=== PATIENT | female | born 1955 | race Caucasian/White ===

== ENCOUNTER → 2016-09-25 | Outpatient (CLI) | payer MEDICARE ==
[2015-01-15 09:14] VITALS: BP 138/68
[~2016-09-25] MED LIST: ATOR20TA58 PO; BUPR1TAB17 SL; CYCL10TA2 PO; ESTR1TAB15 PO; HYDR8TAB29 PO; LEVO112T4 PO; METH750T2 PO; MULT-650 PO; OXYB10TA PO; OXYM15TA PO; PROP60CA8 PO; TRIA1CAP3 PO; [UNRECOGNIZED DRUG - CODE] PO
--- NOTE | 2016-09-25 11:31 | CARD ---
APPROVED REPORT EXAM: Two-dimensional and M-mode echocardiogram with Doppler and color Doppler. Other Information Quality : Good INDICATION Left Ventricular Hypertrophy 2D DIMENSIONS RVDd2.9 (2.9-3.5cm)Left Atrium(2D)3.6 (1.6-4.0cm) IVSd0.9 (0.7-1.1cm)Aortic Root(2D)2.2 (2.0-3.7cm) LVDd4.9 (3.9-5.9cm)LVOT Diameter2.0 (1.8-2.4cm) PWd0.9 (0.7-1.1cm)LVDs3.8 (2.5-4.0cm) FS (%) 25.0 %SV49.5 ml LVEF(%)50.0 (>50%) Aortic Valve AoV Peak Vladimir.138.4cm/sAoV VTI28.8cm AO Peak GR.7.7mmHgLVOT Peak Vladimir.86.0cm/s AO Mean GR.4mmHgAVA (VMAX)1.91cm2 TEJINDER (VTI)2.20cm2 Mitral Valve MV E Ngxbiigj164.5cm/sMV DECEL COCC095nq MV A Zrxgnejc819.7cm/sE/A Ratio0.9 Pulmonary Vein S1 Xvqzvvey85.0cm/sD2 Unkjbtjv53.6cm/s PVa [id number] LEFT VENTRICLE The left ventricle is normal size. There is normal left ventricular wall thickness. Left ventricle sy stolic function is low normal. The Ejection Fraction is 50-55%. There is normal LV segmental wall mot ion. Transmitral Doppler flow pattern is Grade I-abnormal relaxation pattern. RIGHT VENTRICLE The right ventricle is normal size. The right ventricular systolic function is normal. ATRIA The left atrium size is normal. The right atrium size is normal. The interatrial septum is intact wit h no evidence for an atrial septal defect or patent foramen ovale as noted on 2-D or Doppler imaging. AORTIC VALVE The aortic valve is normal in structure and function. Doppler and Color Flow revealed no significant aortic regurgitation. There is no significant aortic valvular stenosis. MITRAL VALVE The mitral valve is normal in structure and function. There is no evidence of mitral valve prolapse. There is no mitral valve stenosis. Doppler and Color-flow revealed mild mitral regurgitation. TRICUSPID VALVE The tricuspid valve is normal in structure and function. Doppler and Color Flow revealed no tricuspid valve regurgitation noted. There is no tricuspid valve stenosis. PULMONIC VALVE Doppler and Color Flow revealed no pulmonic valvular regurgitation. There is no pulmonic valvular willa nosis. GREAT VESSELS The aortic root is normal in size. The ascending aorta is normal in size. The IVC is normal in size a nd collapses >50% with inspiration. PERICARDIAL EFFUSION There is no evidence of significant pericardial effusion. Critical Notification Critical Value: No <Conclusion> Left ventricle systolic function is low normal. The Ejection Fraction is 50-55%. There is normal LV segmental wall motion. No significant valvular disease.
== END | disposition home or self-care (01) ==
LOC: ECHO 10:06
PROVIDERS: ATTEND Internal Medicine Cardiovascular Disease
DX: I51.7 Cardiomegaly (principal)
CPT/HCPCS: 93306

== ENCOUNTER 2016-10-03 06:16 | Inpatient (IN) | payer MEDICARE ==
--- NOTE | 2016-10-02 12:26 | PDOC1 ---
History and Physical Date of Admission Date of Admission DATE: 10/03/16 Identification/Chief Complaint Chief Complaint right knee osteoarthritis pain Source Source: Chart review History of Present Illness History of Present Illness Patient is a 61 year old disabled woman who is here for pain in both knees. The pain is rated at a sharp 7-9 out of 10 and has been there for 10-15 years. The pain is located Anteriorly and medially, with numbness and tingling in both legs that starts in her thighs and goes all the way down. She has been taking cyclobenzaprine and Suboxone for pain and had a cortisone injection 3 or [address] Volodymyr Higuera[address] Xrays were taking at [facility] of 01/12/16, as well as an older MRI on 11/01/12. She cannot take NSAIDs due to swelling and breathing issues. She has been attending the pain clinic for lumbar epidural steroids. She played some sports remotely. 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 She did physical therapy as we instructed, and had cortisone injections but only got minimal relief. She is using a brace on the right knee. She has a [employer] brace. The right knee is the worst of the two. Past Medical History Cardiovascular: HTN, Hyperlipidemia GI: GERD Musculoskeletal: Osteoarthritis, Other (bilateral ankle fractures) Endocrine: Hypothyroidism Past Surgical History Past Surgical History left ankle fusion Past Surgical History: Hysterectomy Family History Family History: Heart Disease Social History Smoke: Quit ALCOHOL: rare Drugs: None Current Medications Current Medications Current Medications Morphine Sulfate/ Ropivacaine/ Epinephrine HCl/ Sodium Chloride (Morphine 5mg Syringe/Naropin 0.5%/Adrenalin/Iv Sodium Chloride 0.9% 100ml) 99.5 ml @ 99.5 mls/hr 1X PERIOP ONCE INT ART ; Start 10/03/16 at 08:00; Stop 10/03/16 at 08:59 Active Scripts Active Reported Pain & Fever (Acetaminophen) 500 Mg Tablet 2 Tab PO DAILY Centrum Silver Women Tablet (Multivits-Min/Iron/FA/Lutein) 1 Each Tablet 1 Each PO DAILY Oxybutynin Chloride Er (Oxybutynin Chloride) 10 Mg Tab.er.24 10 Mg PO BID Cyclobenzaprine Hcl 10 Mg Tablet 10 Mg PO TID Zubsolv 1.4-0.36 Mg Tablet Sl (Buprenorphine Hcl/Naloxone Hcl) 1 Each Tab.subl 1 Each SL TID Inderal La (Propranolol Hcl) 60 Mg Cap.sa.24h 2 Cap PO DAILY Atorvastatin Calcium 20 Mg Tablet 1 Tab PO DAILY Estradiol 1 Mg Tablet 1 Tab PO DAILY Levothyroxine Sodium 112 Mcg Tablet 1 Tab PO DAILY Triamterene-Hctz 37.5-25 Mg Cp (Triamterene/Hydrochlorothiazid) 1 Each Capsule 1 Cap PO DAILY Allergies Allergies: Coded Allergies: baclofen (Verified Allergy, Intermediate, Anaphylaxis, 09/11/16) gabapentin (Verified Allergy, Intermediate, Anaphylaxis, 09/11/16) tizanidine (Verified Allergy, Intermediate, Anaphylaxis, 09/11/16) ibuprofen (Verified Adverse Reaction, Intermediate, Swelling, 09/11/16) ketorolac (Verified Adverse Reaction, Intermediate, Swelling, 09/11/16) Physical Exam General: Alert, Oriented X3, Cooperative, No acute distress HEENT: Atraumatic, EOMI Lungs: Normal air movement Heart: RRR Abdomen: Soft Extremities: No clubbing, No cyanosis, No edema, Normal pulses Skin: No rashes, No breakdown, No significant lesion Neuro: Normal speech, Sensation intact Psych/Mental Status: Mental status NL, Mood NL Images Images IMAGING REPORT Joint survey, hips, knees, and ankles Clinical information: Preoperative for total knee arthroplasty Comparison: None. Findings Bones: The mechanical axis of the femur is 5 bilaterally. Screws are present at the left ankle joint. There are minimal degenerative changes of the hips and ankles. There is narrowing of the knees and varus alignment bilaterally. The right hip to ankle distance is 885 mm. The left hip to ankle distances is 882 mm. Joints: As above Soft tissue: Normal. Impression: Bilateral knee osteoarthritis with varus alignment. Dictated and Signed Using Voice Recognition Software Vamshi Bell MD VTE Prophylaxis Ordered VTE Prophylaxis Devices: Yes VTE Pharmacological Prophylaxi: Yes Assessment/Plan Assessment/Plan Right knee osteoarthritis. Dr. Bell discussed total knee arthroplasty and the risks and benefits. She has continued pain despite bracing, cortisone injection, and physical therapy. X- rays show [id number] arthritis. The right knee is more symptomatic. We discussed right total knee arthroplasty, and the expected hospitalization. We discussed the potential risks of infection, neurovascular injury, bleeding, blood clots, need for revision surgery, or other potential surgical or anesthetic complications. Her son was here today and we discussed the rehabilitation class, medical clearance and other perioperative concerns. She normally cannot take NSAIDs but does feel like she could take an aspirin twice a day for DVT prophylaxis. We will plan a right total knee arthroplasty mutually convenient date. Due to her young age we will consider an Oxinium component. TEODORO WILKERSON Oct 02, 2016 12:26
[~2016-10-03] VITALS: Ht 163.8 cm; Wt 94.8 kg
[2016-10-03] VITALS (8 sets, daily range): BP systolic 110–157; BP diastolic 61–82
[~2016-10-03 06:16] MED LIST changes: +CEFAZOLIN 2GM PREMIX 50 ML IV PRN; +HYDROCODONE/APAP 7.5/325MG TABLET. PO PRN; +TRANEXAMIC ACID 1,000 MG in IV NS 50ML -- 1ST BAG INJ ONE
[2016-10-03] MEDS ORDERED: MIDAZOLAM HCL 2 MG/2 ML VIAL. ONE (06:48)
[2016-10-03] MEDS ORDERED: ONDANSETRON PF 4 MG/2 ML VIAL. ONE ×2 (06:49→07:42)
[2016-10-03] MEDS ORDERED: SEVOFLURANE 61 TO 120 MINUTES. IH ONE (06:49)
[2016-10-03] MEDS ORDERED: LIDOCAINE 2% 100 MG/5 ML DISP.SYRIN. ONE (06:49)
[2016-10-03] MEDS ORDERED: FENTANYL PF 250 MCG/5 ML VIAL. ONE (06:49)
[2016-10-03] MEDS ORDERED: PROPOFOL 20 ML IV ONE (06:49)
[2016-10-03] MEDS ORDERED: FAMOTIDINE 20 MG/2 ML VIAL ONE (06:49)
[2016-10-03] MEDS ORDERED: TOBRAMYCIN POWDER 1.2 GM VIAL. ONE (06:52)
[2016-10-03] MEDS ORDERED: VANCOMYCIN 1 GM VIAL. ONE (06:52)
[2016-10-03] MEDS ORDERED: HYDROMORPHONE 2 MG/ML VIAL. IV PRN (07:00)
[2016-10-03] MEDS ORDERED: FENTANYL PF 100 MCG/2 ML VIAL. IV PRN ×2 (07:00→09:30)
[2016-10-03] MEDS ORDERED: PROCHLORPERAZINE 10 MG/2 ML VIAL. IV PRN ×2 (07:00→09:30)
[2016-10-03] MEDS ORDERED: IV RINGERS,LACTATED 1000ML 1,000 ML IV SCH (07:00)
[2016-10-03] MEDS ORDERED: MORPHINE SULFATE 2 MG/ML DISP.SYRIN. IV PRN ×2 (07:00→09:30)
[2016-10-03] MEDS ORDERED: ONDANSETRON PF 4 MG/2 ML VIAL. IV PRN (07:00)
[2016-10-03] MEDS ORDERED: LIDOCAINE 1% 1 ML SYRINGE. ID PRN (07:00)
[2016-10-03] MEDS ORDERED: TRANEXAMIC ACID 1,000 MG in IV NS 50ML -- 2ND BAG INJ ONE (08:00)
[2016-10-03] MEDS ORDERED: MORPHINE SULFATE 5 MG, ROPIVacaine 0.5% PF 60 ML, EPINEPHRINE 0.5 MG in IV NORMAL SALIN... INT ART ONE (08:00)
[2016-10-03] MEDS ORDERED: MORPHINE SULFATE 10 MG/ML VIAL. ONE (08:49)
--- NOTE | 2016-10-03 09:17 | PDOC4 ---
Operative Note Operative Note Date of Procedure: October 03, 2016 Pre-Op Diagnosis: Osteoarthritis right knee Post-Op Diagnosis: Osteoarthritis right knee Procedure: right total knee arthroplasty Surgeon: Cyndie Bell MD Acupressurist: Estefany Elder PA-C Anesthesia: General EBL: 200 mL Specimens Obtained: right knee bone and soft tissue Complications: none Implant Company: [employer] Drains: Hemovac plus pain catheter Tourniquet time: 53 minutes Indications for Procedure: Arthritis pain unrelieved by nonoperative management. Findings: Severe osteoarthritis with bone on bone contact medially Implants used: Size 4 right bicruciate stabilized Journey II BCS Oxinium femoral component, size 3 right Journey nonporous tibial baseplate, size 3-4 11 mm right Journey II BCS XLPE articular insert, 32 mm oval Elisabeth II resurfacing patellar component Procedure in Detail: The patient was identified in the preoperative holding area, and the correct right extremity was marked by me. The patient was taken to the operating room where the patient was anesthetized by the Department of Anesthesia. Preoperative antibiotics were given intravenously. Tranexamic acid 1 g was given intravenously for intraoperative hemostasis. A "time-out" procedure was performed. The patient was positioned supine on the operative table with a tourniquet on the upper thigh. The limb was thoroughly prepped and draped in sterile fashion. An impervious stockinet and adhesive drape were used such that the skin was entirely covered. An Blackwell leg garcia was used. The operating team wore personal exhaust-ventilated hoods. The tourniquet was inflated to 350 mm Hg. A midline skin incision was made with a scalpel using the patella and tibial tubercle as landmarks. Electrocautery was used for hemostasis. My assistant real estate manager used rake retractors. A medial parapatellar arthrotomy incision was used with extension into the distal quadriceps tendon. The patella was retracted laterally and Hohmann retractors were now used by my assistant real estate manager. Excess synovium, the menisci, and the cruciate ligaments were resected sharply. The patella was assessed and excess synovium and osteophytes around the patellar articulation were removed. The patella was measured with a caliper, cut freehand with a saw using caliper measurements, sized, and then drilled for an oval three-pegged patella component. Periarticular injection was used in the suprapatellar pouch and distal quadriceps muscle. Whitesides's line was assessed on the femur. An intra-medullary 5 degree cutting guide was pinned to the femur, and a distal femoral cut was made with an oscillating saw. An additional 2 mm resection was used due to the deep femoral sulcus, and deficient condyle.My assistant real estate manager held Hohmann retractors and an [employer] retractor to protect the medial and lateral collateral ligaments, the patellar tendon, the skin and the other soft tissues. An anterior referencing guide was applied with external rotation of 4 to match Whitesides line. A 5-in-1 Journey II cutting guide was then applied and pinned to the femur. The posterior, anterior, and all chamfer cuts were made with the oscillating saw. An extramedullary guide was pinned to the tibia and rotational alignment and the planned resection thickness assessed. An external alignment aura was used to verify the planned cut in the varus-valgus plane and regarding posterior slope referencing the tibial tubercle, the tibial shaft, the ankle joint, and the second metatarsal. The upper tibia was cut made with an oscillating saw. My assistant real estate manager held Hohmann retractors and a posterior cruciate ligament retractor to protect the medial and lateral collateral ligaments, the patellar tendon, the skin, the peroneal nerve and the other soft tissues. The upper tibia was sized with a trial baseplate. The posterior compartment was cleared of osteophytes and loose bodies, and posterior capsule released. Shaila-articular injection was used in the posterior compartment. The box cut for a posterior stabilized component was made. A preliminary reduction was performed with a trial femur, trial tibial baseplate and trial polyethylene. Soft-tissue balancing was now performed, and extension and rotation of the alignments was checked using a guide aura in the tibial trial and a guide pin in the femur. No additional releases were required. The stability was assessed using different thicknesses of tibial articular surface to find satisfactory stability and good range of motion. The rotation of the tibial component was marked on the upper tibia. Final trial reduction was now performed verifying patella tracking and tibiofemoral stability and alignment. The tibia preparation was completed with a drill, saw, and fin punch at the previously noted rotation. The final implants were verified and opened. Outer gloves were changed by the operating team. The bone cuts were washed thoroughly with the [employer] InterPulse device and dried. Two packages of Palacos bone cement were mixed in powdered form with 1 gm of Vancomycin and 1.2 g tobramycin, then vacuum-mixed with the monomer, and placed into a cement gun. The cut surfaces of the bone were thoroughly dried with Alamo-tip suction and with laparotomy sponges for cement interdigitation. The final components were cemented into place. The knee was kept at full extension while the cement hardened, and excess cement was removed. Tranexamic acid 1 g was redosed intravenously for additional intraoperative hemostasis. A final periarticular injection was used for pain relief. The tourniquet was released, and electrocautery was used for hemostasis. A final check of [id number] and stability was made, and the polyethylene implant final size was chosen. The polyethylene implant was secured to the tibial baseplate, and the knee was reduced a final time. Thorough irrigation was used. Hemovac and pain catheter were used.The arthrotomy was closed with interrupted nmuhoi-on-tqinf #1 PDS suture. The capsulotomy was then run with #1 STRATAFIX symmetric PDS plus. The subcutaneous tissues were closed with #2-0 Vicryl by Ms Elder. The skin was reapproximated with karey by Ms. Elder. A bulky sterile dressing was applied. Needle and sponge counts were correct. CYNDIE BELL MD Oct 03, 2016 09:17
[2016-10-03] MEDS: FENTANYL PF 100 MCG/2 ML VIAL. IV PRN ×4 (09:28→23:39)
[2016-10-03] MEDS ORDERED: METOCLOPRAMIDE HCL 10 MG/2 ML VIAL. IV PRN (09:30)
[2016-10-03] MEDS ORDERED: MORPHINE SULFATE 10 MG/ML VIAL. IV PRN (09:30)
[2016-10-03] MEDS ORDERED: PROCHLORPERAZINE 5 MG TABLET. PO PRN (09:30)
[2016-10-03] MEDS ORDERED: CALCIUM CARBONATE 500 MG TAB.CHEW PO PRN (09:30)
[2016-10-03] MEDS ORDERED: DEXTROSE 50% 25 GM / 50ML DISP.SYRIN. IV PRN (09:30)
[2016-10-03] MEDS ORDERED: 0.9 % SODIUM CHLORIDE 10 ML DISP.SYRIN. IV PRN (09:30)
[2016-10-03] MEDS ORDERED: MORPHINE SULFATE 4 MG/ML DISP.SYRIN. IV PRN ×2 (09:30)
[2016-10-03] MEDS ORDERED: HYDROCODONE/APAP 7.5/325MG TABLET. PO PRN (09:30)
[2016-10-03] MEDS ORDERED: DIPHENHYDRAMINE 50 MG/ML VIAL IV PRN (09:30)
[2016-10-03] MEDS ORDERED: ZOLPIDEM 5 MG TABLET. PO PRN (09:30)
[2016-10-03] MEDS ORDERED: OXYCODONE/APAP 5/325 TABLET. PO PRN (09:30)
[2016-10-03] MEDS ORDERED: TRAMADOL 50 MG TABLET. PO PRN ×2 (09:30)
[2016-10-03] MEDS ORDERED: ACETAMINOPHEN 325 MG TABLET. PO PRN (09:30)
--- NOTE | 2016-10-03 09:49 | RAD ---
Right knee, 2 views, 10/03/2016: History: Postop evaluation A total knee prosthesis is in place in satisfactory position. Surgical skin clips and a drain overlie the operative site anteriorly. There is no evidence of a retained surgical instrument, needle or radiopaque sponge on these 2 views. IMPRESSION: No significant postoperative abnormality is detected.
[2016-10-03] MEDS: HYDROCODONE/APAP 10/325 TABLET. PO PRN ×2 (13:56→21:46)
[2016-10-03] MEDS: IV DEXTROSE 5 %-0.45 % NACL 1,000 ML IV SCH ×2 (13:57→19:18)
[2016-10-03] MEDS: FERROUS SULFATE 325 MG TABLET PO SCH (17:37)
[2016-10-03] MEDS: OXYCODONE/APAP 7.5/325 TABLET. PO PRN (17:38)
[2016-10-03] MEDS: CEFAZOLIN 2GM PREMIX 50 ML IV SCH ×2 (17:38→19:43)
[2016-10-03] MEDS: BUPIVACAINE MPF 0.25% 20 ML, EPINEPHRINE 0.5 MG in TOTAL VOLUME SYRINGE 21.5 ML INT ART SCH (17:51)
[2016-10-03] MEDS: CELECOXIB 200 MG CAPSULE PO SCH (21:34)
[2016-10-03] MEDS: ASPIRIN ENTERIC COATED 325 MG TABLET.DR. PO SCH (21:34)
[2016-10-04] MEDS: CEFAZOLIN 2GM PREMIX 50 ML IV SCH (02:01)
[2016-10-04 03:15] VITALS: BP 117/54
[2016-10-04] MEDS: HYDROCODONE/APAP 10/325 TABLET. PO PRN ×5 (03:54→21:18)
[2016-10-04] MEDS: IV DEXTROSE 5 %-0.45 % NACL 1,000 ML IV SCH (05:18)
[2016-10-04] MEDS ORDERED: MAGNESIUM HYDROXIDE 2,400 MG/30 ML ORAL.SUSP. PO PRN (06:00)
[2016-10-04] MEDS: BUPIVACAINE MPF 0.25% 20 ML, EPINEPHRINE 0.5 MG in TOTAL VOLUME SYRINGE 21.5 ML INT ART SCH (06:07)
[2016-10-04 06:10] VITALS: BP 105/59
[2016-10-04] MEDS: SENNOSIDES/DOCUSATE 8.6/50MG TABLET. PO SCH (08:53)
[2016-10-04] MEDS: MULTIVITAMIN with MINERAL TABLET. PO SCH (08:53)
[2016-10-04] MEDS: ASPIRIN ENTERIC COATED 325 MG TABLET.DR. PO SCH ×2 (08:53→21:17)
[2016-10-04] MEDS: CELECOXIB 200 MG CAPSULE PO SCH ×2 (08:54→21:00)
[2016-10-04] MEDS: FERROUS SULFATE 325 MG TABLET PO SCH ×2 (08:54→16:15)
[2016-10-04] MEDS: OXYCODONE/APAP 7.5/325 TABLET. PO PRN (08:58)
[2016-10-04] MEDS ORDERED: INFLUENZA VAX SCREEN BY RX. MC PRN (09:00)
[2016-10-04] MEDS ORDERED: FLU VACC QUAD 2016-17 (36MOS+)/PF 0.5 ML SYRINGE. VAX IM ONE (10:00)
[2016-10-04] MEDS: OXYBUTYNIN CHLORIDE 5 MG TABLET PO SCH ×2 (12:56→21:17)
--- NOTE | 2016-10-04 13:24 | PDOC ---
PROGRESS NOTES Subjective Subjective She is sore after therapy this morning, but otherwise is doing well. Objective Vital Signs Vital Signs Date Time Temp Pulse Resp B/P Pulse Ox O2 Delivery O2 Flow Rate FiO2 10/04/16 12:47 16 Room Air 10/04/16 06:10 97.4 69 105/59 92 97.4 10/03/16 20:00 2.0 Physical Exam Dressing dry and intact. Hemovac and pain catheter in place. Good dorsiflexion and plantarflexion of the foot with no evidence of neurovascular injury or DVT. Calves are soft and nontender with a negative Homans sign. Peripheral pulses and light touch sensation intact. Imaging Postoperative x-rays reviewed by me, showing satisfactory total knee replacement , with no apparent complications. Assessment Assessment POD #1 TKA Problems: Plan Plan of Care Continue POC including DVT prophylaxis and physical therapy. She is planning to be discharged to home on Sunday with outpatient physical therapy at [facility]. TEODORO WILKERSON Oct 04, 2016 13:24
[2016-10-04] MEDS: CYCLOBENZAPRINE 10 MG TABLET. PO SCH ×2 (14:56→21:17)
[2016-10-04] MEDS ORDERED: BISACODYL 10 MG SUPP.RECT PR PRN (16:00)
[2016-10-04 17:11] VITALS: BP 112/59
[2016-10-04] MEDS: AMITRIPTYLINE HCL 50 MG TABLET PO SCH (21:17)
[2016-10-04] MEDS: ATORVASTATIN CALCIUM 20 MG TABLET PO SCH (21:17)
[2016-10-05] MEDS: HYDROCODONE/APAP 10/325 TABLET. PO PRN ×5 (04:04→21:02)
[2016-10-05 04:46] LABS: HEMATOCRIT 29.3 % (36.0-47.0); HEMOGLOBIN 9.8 g/dL (12.0-15.5)
[2016-10-05 05:00] VITALS: BP 123/63
[2016-10-05] MEDS: OXYBUTYNIN CHLORIDE 5 MG TABLET PO SCH ×2 (08:20→21:02)
[2016-10-05] MEDS: OXYCODONE/APAP 7.5/325 TABLET. PO PRN (08:21)
[2016-10-05] MEDS: ESTRADIOL 1 MG TABLET PO SCH (08:22)
[2016-10-05] MEDS: MULTIVITAMIN with MINERAL TABLET. PO SCH (08:22)
[2016-10-05] MEDS: LEVOTHYROXINE 112 MCG TABLET PO SCH (08:22)
[2016-10-05] MEDS: FERROUS SULFATE 325 MG TABLET PO SCH ×2 (08:22→17:39)
[2016-10-05] MEDS: ASPIRIN ENTERIC COATED 325 MG TABLET.DR. PO SCH ×2 (08:22→21:02)
[2016-10-05] MEDS: SENNOSIDES/DOCUSATE 8.6/50MG TABLET. PO SCH (08:22)
[2016-10-05] MEDS: CELECOXIB 200 MG CAPSULE PO SCH (08:23)
[2016-10-05] MEDS: CYCLOBENZAPRINE 10 MG TABLET. PO SCH ×3 (08:29→21:02)
[2016-10-05] MEDS ORDERED: PROPRANOLOL ER 60 MG CAP.SA.24H. PO SCH (09:00)
[2016-10-05] MEDS ORDERED: TRIAMTERENE/HCTZ 37.5/25MG TABLET. PO SCH (09:00)
[2016-10-05 12:08] VITALS: BP 130/76
--- NOTE | 2016-10-05 12:43 | PDOC ---
PROGRESS NOTES Subjective Subjective Doing well. Mild increase in pain today. Objective Vital Signs Vital Signs Date Time Temp Pulse Resp B/P Pulse Ox O2 Delivery O2 Flow Rate FiO2 10/05/16 12:10 Room Air 10/05/16 12:09 93 130/76 10/05/16 12:08 97.7 18 97 97.7 10/05/16 07:50 3.0 Physical Exam Expected swelling. Hemovac and pain catheter has been removed. Aquacel dressing dry. Calf soft and nontender with a negative Homans sign. Good AROM ankle. Peripheral pulses and light touch sensation intact. Labs Laboratory Tests Test 10/05/16 03:05 Hemoglobin 9.8g/dL (12.0-15.5) Hematocrit 29.3% (36.0-47.0) Mean Corpuscular Hemoglobin Concent 34g/dL (31-37) Laboratory Tests Test 10/05/16 03:05 Hemoglobin 9.8g/dL (12.0-15.5) Hematocrit 29.3% (36.0-47.0) Mean Corpuscular Hemoglobin Concent 34g/dL (31-37) Assessment Assessment POD 2 TKA Problems: Plan Plan of Care Continue DVT prophylaxis and physical therapy. Planned discharge tomorrow to home, with home health PT. Office F/U in 10-14 days. TEODORO WILKERSON Oct 05, 2016 12:43
--- NOTE | 2016-10-05 16:07 | PATHOLOGY ---
PATHOLOGY REPORT * * * * * * * * FINAL DIAGNOSIS: Segments of bone and soft tissue, right total knee arthroplasty: - Advanced degenerative arthritis. (JPM:; d/t: 10/05/16) REPORT ELECTRONICALLY SIGNED BY: Alberto Manuel M.D. DATE/TIME: 10/05/2016 16:06 * * * * * * * * GROSS PATHOLOGY: Received in formalin labeled "Myke Swanson, right knee tissue," are multiple segments of bone, including tibial plateau, measuring 8.5 x 8.2 x 2.0 cm in aggregate dimensions admixed with soft tissue; meniscus is not present. The specimen shows focal eburnation of the articular surfaces. Stripe Matcher sections of bone and soft tissue are submitted in cassette A1, following decalcification. (CAA; 10/04/2016) INITIAL CPT CODE(S): A; 12908, 69439 Professional services [place] [place] [address] Technical services performed by [facility] at [address] [place] [address]. SPECIMEN(S) RECEIVED: A.Right knee tissue CLINICAL HISTORY: Right knee OA PATIENT: MYKE SWANSON /AGE: [id number] 1955 (Age: 61) PATIENT #: [id number] ALT CASE #: SPECIMEN COLLECTION DATE: 10/03/2016 SPECIMEN RECEIVED DATE: 10/03/2016 [facility] - [address] [place] [address] - PHONE: [phone] * * * END OF REPORT * * *
[2016-10-05 17:56] VITALS: BP 119/67
[2016-10-05] MEDS: AMITRIPTYLINE HCL 50 MG TABLET PO SCH (21:02)
[2016-10-05] MEDS: ATORVASTATIN CALCIUM 20 MG TABLET PO SCH (21:02)
[2016-10-06 06:00] VITALS: BP 121/65
[2016-10-06] MEDS: LEVOTHYROXINE 112 MCG TABLET PO SCH (06:38)
[2016-10-06] MEDS: HYDROCODONE/APAP 10/325 TABLET. PO PRN (07:05)
[2016-10-06] MEDS: FERROUS SULFATE 325 MG TABLET PO SCH (08:22)
[2016-10-06] MEDS: MULTIVITAMIN with MINERAL TABLET. PO SCH (08:23)
[2016-10-06] MEDS: CYCLOBENZAPRINE 10 MG TABLET. PO SCH ×2 (08:23→15:01)
[2016-10-06] MEDS: OXYBUTYNIN CHLORIDE 5 MG TABLET PO SCH (08:24)
[2016-10-06] MEDS: SENNOSIDES/DOCUSATE 8.6/50MG TABLET. PO SCH (08:24)
[2016-10-06] MEDS: ASPIRIN ENTERIC COATED 325 MG TABLET.DR. PO SCH (08:24)
[2016-10-06] MEDS: ESTRADIOL 1 MG TABLET PO SCH (08:28)
[2016-10-06 11:25] LABS: HEMATOCRIT 32.6 % (36.0-47.0)
[2016-10-06] MEDS: OXYCODONE/APAP 7.5/325 TABLET. PO PRN (11:53)
--- NOTE | 2016-10-06 14:35 | PDOC ---
PROGRESS NOTES Subjective Subjective Doing well. Objective Vital Signs Vital Signs Date Time Temp Pulse Resp B/P Pulse Ox O2 Delivery O2 Flow Rate FiO2 10/06/16 08:28 Room Air 10/06/16 07:05 22 10/06/16 06:00 97.4 86 121/65 98 97.4 10/05/16 20:00 3.0 Physical Exam Expected swelling. Aquacel dressing intact. Calf soft and nontender, with a negative Rachell's sign. Good dorsiflexion and plantarflexion with no evidence of neurovascular injury. Achieved 100 degrees of flexion in therapy. Labs Laboratory Tests Test 10/05/16 03:05 10/06/16 11:10 Hemoglobin 9.8g/dL (12.0-15.5) 11.0g/dL (12.0-15.5) Hematocrit 29.3% (36.0-47.0) 32.6% (36.0-47.0) Mean Corpuscular Hemoglobin Concent 34g/dL (31-37) 34g/dL (31-37) Laboratory Tests Test 10/06/16 11:10 Hemoglobin 11.0g/dL (12.0-15.5) Hematocrit 32.6% (36.0-47.0) Mean Corpuscular Hemoglobin Concent 34g/dL (31-37) Assessment Assessment POD #3 TKA Problems: Plan Plan of Care Discharge to home with home health after afternoon therapy. Followup with [facility] in 10-14 days. TEODORO WILKERSON Oct 06, 2016 14:35
--- NOTE | 2016-10-06 14:39 | PDOC3 ---
Discharge Summary Visit Information Date of Admission: Oct 03, 2016 Date of Discharge: Oct 06, 2016 Admitting Diagnosis: right knee osteoarthritis pain Final Diagnosis Problems Medical Problems: (1) Osteoarthritis of right knee Status: Acute Brief Hospital Course Allergies Allergies Coded Allergies Type Severity Reaction Last Updated Verified baclofen Allergy Severe Anaphylaxis 10/03/16 Yes gabapentin Allergy Severe Anaphylaxis 10/03/16 Yes tizanidine Allergy Severe Anaphylaxis 10/03/16 Yes celecoxib Allergy Unknown Unknown 10/04/16 Yes ibuprofen Adverse Reaction Intermediate Swelling 10/03/16 Yes ketorolac Adverse Reaction Intermediate Swelling 10/03/16 Yes Vital Signs Vital Signs Date Time Temp Pulse Resp B/P Pulse Ox O2 Delivery O2 Flow Rate FiO2 10/06/16 08:28 Room Air 10/06/16 07:05 22 10/06/16 06:00 97.4 86 121/65 98 97.4 10/05/16 20:00 3.0 Lab Results Laboratory Tests Test 10/05/16 03:05 10/06/16 11:10 Hemoglobin 9.8g/dL (12.0-15.5) 11.0g/dL (12.0-15.5) Hematocrit 29.3% (36.0-47.0) 32.6% (36.0-47.0) Mean Corpuscular Hemoglobin Concent 34g/dL (31-37) 34g/dL (31-37) Laboratory Tests Test 10/06/16 11:10 Hemoglobin 11.0g/dL (12.0-15.5) Hematocrit 32.6% (36.0-47.0) Mean Corpuscular Hemoglobin Concent 34g/dL (31-37) Brief Hospital Course 61 year old female who presented with right knee osteoarthritis, for elective total knee arthroplasty. The patient underwent total knee arthroplasty under general anesthesia the day of admission. Perioperative antibiotics and DVT prophylaxis were used. Postoperatively physical therapy and case management were consulted. The patient progressed and is stable for discharge. Discharge Information Condition at Discharge: Stable Follow Up: Weeks (2) Disposition/Orders: D/C to Home w/ HH Scheduled Acetaminophen (Pain & Fever) 2 TAB PO DAILY (Reported) Atorvastatin Calcium (Atorvastatin Calcium) 1 TAB PO DAILY (Reported) Buprenorphine Hcl/Naloxone Hcl (Zubsolv 1.4-0.36 Mg Tablet Sl) 1 EACH SL TID ( Reported) Cyclobenzaprine Hcl (Cyclobenzaprine Hcl) 10 MG PO TID (Reported) Estradiol (Estradiol) 1 TAB PO DAILY (Reported) Levothyroxine Sodium (Levothyroxine Sodium) 1 TAB PO DAILY (Reported) Multivits-Min/Iron/FA/Lutein (Centrum Silver Women Tablet) 1 EACH PO DAILY ( Reported) Oxybutynin Chloride (Oxybutynin Chloride Er) 10 MG PO BID (Reported) Propranolol Hcl (Inderal La) 2 CAP PO DAILY (Reported) Triamterene/Hydrochlorothiazid (Triamterene-Hctz 37.5-25 Mg Cp) 1 CAP PO DAILY ( Reported) Patient Instructions Patient Instructions Patient Instructions Continue to WBAT with walker. Keep dressing dry and intact. F/U with [facility] in 10-14 days. Call for appointment. Physical therapy for TKA Continue DVT prophylaxis. TEODORO WILKERSON Oct 06, 2016 14:39
[2016-10-06 15:00] VITALS: BP 118/69
== END 2016-10-06 16:45 | disposition home or self-care (01) | DRG 470 ==
LOC: OPSVCIP 06:16 → 4 SOUTHEST 10:35
PROVIDERS: ADMIT Orthopaedic Surgery; ATTEND Orthopaedic Surgery
PROC: 0SRC0J9 Replacement of Right Knee Joint with Synthetic Substitute, Cemented, Open Approach (ICD-10-PCS; principal; 2016-10-03 07:10)
DX: M17.11 Unilateral primary osteoarthritis, right knee (principal); E03.9 Hypothyroidism, unspecified; E78.5 Hyperlipidemia, unspecified; I10 Essential (primary) hypertension; K21.9 Gastro-esophageal reflux disease without esophagitis; Z90.710 Acquired absence of both cervix and uterus; Z87.891 Personal history of nicotine dependence
CPT/HCPCS: 36415; 73560; 85014; 85018; 86850; 86900; 86901; 88305; 88311; 90686; J0171; J0690; J2250; J2270; J2405; J2704; J2795; J3010; J3260; J3370; J3490; J7030; J7120; S0028; 97116; 97150; 97530; 97535; C1769

== ENCOUNTER → 2017-02-05 | Outpatient (CLI) | payer BC, MEDICARE ==
[~2017-02-05] MED LIST changes: +AMIT50TA PO; +BUPR1PAT6 TP; -CEFAZOLIN 2GM PREMIX 50 ML IV PRN; +FERR-26 PO; -HYDROCODONE/APAP 7.5/325MG TABLET. PO PRN; -TRANEXAMIC ACID 1,000 MG in IV NS 50ML -- 1ST BAG INJ ONE
[2017-02-05 13:40] LABS: BASO # 0.1 x10^3/uL (0.0-0.2); BASO % 1 % (0-3); EOS % 3 % (0-3); HEMATOCRIT 35.2 % (36.0-47.0); HEMOGLOBIN 12.1 g/dL (12.0-15.5); LYMPH # 2.9 x10^3/uL (1.0-4.8); LYMPH % 33 % (24-48); MEAN CORPUSCULAR HEMOGLOBIN 29 pg (25-35); MEAN CORPUSCULAR HGB CONC 34 g/dL (31-37); MEAN CORPUSCULAR VOLUME 85 fL (79-100); MONO % 9 % (0-9); NEUT % 54 % (31-73); PLATELET COUNT 281 x10^3/uL (140-400); RED BLOOD COUNT 4.15 x10^6/uL (3.50-5.40); WHITE BLOOD COUNT 8.6 x10^3/uL (4.0-11.0)
[2017-02-05 13:47] LABS: ALBUMIN 3.3 g/dL (3.4-5.0); CALCIUM 9.2 mg/dL (8.5-10.1); GFR 56.2; POTASSIUM 3.8 mmol/L (3.5-5.1)
[2017-02-05 13:56] LABS: PROTHROMBIN TIME PATIENT 12.7 SEC (11.7-14.0)
[2017-02-05 14:38] LABS: BILIRUBIN,URINE NEGATIVE (NEG); GLUCOSE,URINE NEGATIVE (NEG); NITRITE,URINE NEGATIVE (NEG); PROTEIN,URINE NEGATIVE (NEG-TRACE); UROBILINOGEN,URINE 0.2 mg/dL (0.2 mg/dL)
[2017-02-05 14:58] LABS: RBC,URINE 0 /HPF (0-2)
[2017-02-05 14:59] LABS: BACTERIA,URINE FEW /HPF (0-FEW); SQUAMOUS EPITHELIAL CELL,UR FEW /LPF
== END | disposition home or self-care (01) ==
LOC: SURGPAT 12:15
PROVIDERS: ATTEND Orthopaedic Surgery
DX: M17.12 Unilateral primary osteoarthritis, left knee (principal)
CPT/HCPCS: 36415; 80048; 81001; 82040; 85027; 85610; 85651; 85730; 87641

== ENCOUNTER 2017-02-20 05:47 | Inpatient (IN) | payer BC, MEDICARE ==
--- NOTE | 2017-02-19 13:11 | PDOC1 ---
History and Physical Date of Admission Date of Admission DATE: 02/20/17 Identification/Chief Complaint Chief Complaint left knee pain Problems: Source Source: Chart review History of Present Illness History of Present Illness The patient is a 61 year old female who had right total knee arthroplasty on 03/12, which is doing well. She is doing well, walking without cane or walker. She is interested in getting a left total knee arthroplasty. She is doing outpatient PT at and doing well there, and has no pain when ambulating. She continues to have left knee pain unrelieved with nonoperative treatment and is ready for left total knee arthroplasty. Past Medical History Cardiovascular: HTN, Hyperlipidemia GI: GERD Musculoskeletal: Osteoarthritis, Other Endocrine: Hypothyroidism Past Surgical History Past Surgical History left ankle partial fusion Past Surgical History: Total knee replacement (right - 09/2016), Hysterectomy Family History Family History: Heart Disease Social History Smoke: Quit ALCOHOL: rare Drugs: None Current Medications Current Medications Active Scripts Active Reported Ferrous Sulfate 325 Mg Tablet 1 Tab PO BID Butrans (Buprenorphine) 1 Each Patch.tdwk 1 Patch TP WEEKLY Amitriptyline Hcl 50 Mg Tablet 1 Tab PO QHS Pain & Fever (Acetaminophen) 500 Mg Tablet 2 Tab PO DAILY None taken during hospital stay Oxybutynin Chloride Er (Oxybutynin Chloride) 10 Mg Tab.er.24 10 Mg PO BID Next dose tonight 9pm Cyclobenzaprine Hcl 10 Mg Tablet 10 Mg PO TID Next dose tonight 9pm. Inderal La (Propranolol Hcl) 60 Mg Cap.sa.24h 2 Cap PO DAILY Resume prior to hospitalization Atorvastatin Calcium 20 Mg Tablet 1 Tab PO DAILY Next dose tomorrow 10/07/16 Estradiol 1 Mg Tablet 1 Tab PO DAILY Next dose tomorrow am 10/07/16 Levothyroxine Sodium 112 Mcg Tablet 1 Tab PO DAILY Triamterene-Hctz 37.5-25 Mg Cp (Triamterene/Hydrochlorothiazid) 1 Each Capsule 1 Cap PO DAILY Next dose tomorrow in am 10/07/16 Allergies Allergies: Coded Allergies: baclofen (Verified Allergy, Severe, Anaphylaxis, 02/05/17) gabapentin (Verified Allergy, Severe, Anaphylaxis, 02/05/17) tizanidine (Verified Allergy, Severe, Anaphylaxis, 02/05/17) I S O L A T I O N *CONTACT* (Verified Allergy, Unknown, 02/06/17) mrsa celecoxib (Verified Allergy, Unknown, Unknown, 02/05/17) ibuprofen (Verified Adverse Reaction, Intermediate, Swelling, 02/05/17) ketorolac (Verified Adverse Reaction, Intermediate, Swelling, 02/05/17) Physical Exam General: Alert, Oriented X3, Cooperative, No acute distress HEENT: Atraumatic, EOMI Lungs: Normal air movement Heart: RRR Abdomen: Soft Extremities: No clubbing, No cyanosis, Normal pulses, Other (RIGHT KNEE: Range of motion actively, 0-120 degrees. The incision is benign. No longer using a walker or crutches. Slight swelling consistent with recent knee replacement. No sign of infection. Calf is soft and nontender, with no evidence of DVTLEFT KNEE : mildly antalgic gait. There is slight varus alignment. No masses. No detectable effusion. Tenderness on the medial and lateral joint lines. Range of motion is 2-115 degrees. There is crepitus with range of motion, and pain at the extremes of motion. The knee is stable to varus and valgus stress without subluxation or laxity. Muscle strength is normal (5/5) for quadriceps and hamstrings, and muscle tone is normal. The skin is normal with no scars, rashes , lesions or ulcers. Light touch sensation is intact. No edema and no varicosities. Dorsalis pedis pulse is intact and capillary refill is normal . ) Skin: No rashes, No breakdown, No significant lesion Neuro: Normal speech, Sensation intact Psych/Mental Status: Mental status NL, Mood NL Images Images Notes :Single lateral view of the left knee is taken 12/25/16 for surgical planning. This shows evidence of osteoarthritis, without evidence of fracture or other abnormality. Osteophytes and sclerosis are present consistent with osteoarthritis. Soft tissues are normal. Diagnosis: Osteoarthritis, left knee VTE Prophylaxis Ordered VTE Prophylaxis Devices: Yes VTE Pharmacological Prophylaxi: Yes Assessment/Plan Assessment/Plan Left knee osteoarthritis. Dr. Bell recommended left total knee arthroplasty. The patient and Dr. Bell discussed the potential risks of infection, neurovascular injury, bleeding, blood clots, need for revision surgery, or other potential surgical or anesthetic complications. All of her questions about surgery were answered and she desires to proceed at a mutually convenient date. TEODORO WILKERSON Feb 19, 2017 13:11
[2017-02-20] VITALS (9 sets, daily range): BP systolic 103–134; BP diastolic 60–83
[~2017-02-20] VITALS: Ht 162.6 cm; Wt 94.8 kg
[2017-02-20] MEDS: IV RINGERS,LACTATED 1000ML 1,000 ML IV SCH ×2 (03:42→06:35)
[~2017-02-20 05:47] MED LIST changes: +HYDROmorphone 2 MG/ML VIAL IV PRN; +LIDOCAINE 1% 1 ML SYRINGE. ID PRN; +MEPERIDINE PF 25 MG/ML VIAL. IV PRN; +MIDAZOLAM HCL/PF 2 MG/2 ML VIAL. IV PRN; +MORPHINE SULFATE 4 MG/ML DISP.SYRIN. IV PRN; +PROCHLORPERAZINE 10 MG/2 ML VIAL. IV PRN; +diphenhydrAMINE 50 MG/ML VIAL IV PRN; +fentaNYL PF VIAL 100 MCG/2 ML VIAL IV PRN
[2017-02-20] MEDS ORDERED: TRANEXAMIC ACID 1,000 MG in IV NS 50ML -- 1ST BAG INJ ONE (06:00)
[2017-02-20] MEDS ORDERED: BACITRACIN 50,000 UNIT in IV NORMAL SALINE 1000ML BAG 1,000 ML IRR ONE (06:00)
[2017-02-20] MEDS ORDERED: VANCOMYCIN 1GM IVPB FOR OMNI. ONE (06:30)
[2017-02-20] MEDS ORDERED: VANCOMYCIN 1GM IVPB FOR OMNI 250 ML ONE (06:32)
[2017-02-20] MEDS: HYDROcodone/APAP 7.5/325MG 1 TAB TABLET PO PRN ×2 (06:44→10:59)
[2017-02-20] MEDS ORDERED: LIDOCAINE 2% PF Vial for OR 5 ML VIAL. ONE (06:57)
[2017-02-20] MEDS ORDERED: fentaNYL PF VIAL 100 MCG/2 ML VIAL ONE ×2 (06:57→08:46)
[2017-02-20] MEDS ORDERED: ONDANSETRON PF 4 MG/2 ML VIAL. ONE (06:57)
[2017-02-20] MEDS ORDERED: DESFLURANE > 120 MINUTES IH ONE (06:57)
[2017-02-20] MEDS ORDERED: MIDAZOLAM HCL/PF 2 MG/2 ML VIAL. ONE (06:57)
[2017-02-20] MEDS ORDERED: DEXAMETHASONE SOD PHOS 20 MG/5 ML VIAL. ONE (06:57)
[2017-02-20] MEDS ORDERED: PROPOFOL 20 ML IV ONE (06:57)
[2017-02-20] MEDS ORDERED: SCOPOLAMINE 1.5MG PATCH. TD ONE ×2 (07:06→07:15)
[2017-02-20] MEDS ORDERED: VANCOMYCIN 1 GM VIAL. ONE (07:15)
[2017-02-20] MEDS ORDERED: TOBRAMYCIN POWDER 1.2 GM VIAL. ONE (07:15)
[2017-02-20] MEDS ORDERED: TRANEXAMIC ACID 1,000 MG in IV NS 50ML -- 2ND BAG INJ ONE (08:00)
--- NOTE | 2017-02-20 09:30 | PDOC4 ---
Operative Note Operative Note Date of Procedure: February 20, 2017 Pre-Op Diagnosis: Osteoarthritis left knee Post-Op Diagnosis: Osteoarthritis left knee Procedure: left total knee arthroplasty with patella resurfacing Surgeon: Cyndie Bell MD Car Pilot: Estefany Elder PA-C Anesthesia: General EBL: 100 mL Specimens Obtained: left knee bone and soft tissue Complications: none Implant Company: [employer] Drains: Hemovac plus pain catheter Tourniquet time: 51 Minutes Tourniquet Pressure: 300 mm Hg Indications for Procedure: Arthritis pain unrelieved by nonoperative management. Findings: Severe osteoarthritis with bone on bone contact medially and at the patellofemoral joint Implants used: Size 3 left bicruciate stabilized Journey II BCS Oxinium femoral component, size 3 left Journey nonporous tibial baseplate, size 3-4 11 mm left Journey II BCS XLPE articular insert, 32 mm oval Elisabeth II resurfacing patellar component Procedure in Detail: The patient was identified in the preoperative holding area, and the correct left extremity was marked by me. The patient was taken to the operating room where the patient was anesthetized by the Department of Anesthesia. Preoperative antibiotics were given intravenously. Tranexamic acid 1 g was given intravenously for intraoperative hemostasis. A "time-out" procedure was performed. The patient was positioned supine on the operative table with a tourniquet on the upper thigh. The limb was thoroughly prepped and draped in sterile fashion. An impervious stockinet and adhesive drape were used such that the skin was entirely covered. An Blackwell leg garcia was used. The operating team wore personal exhaust-ventilated hoods. The tourniquet was inflated to 350 mm Hg. A midline skin incision was made with a scalpel using the patella and tibial tubercle as landmarks. Electrocautery was used for hemostasis. My credentialing assistant used rake retractors. A medial parapatellar arthrotomy incision was used with extension into the distal quadriceps tendon. The patella was retracted laterally and Hohmann retractors were now used by my credentialing assistant. Excess synovium, the menisci, and the cruciate ligaments were resected sharply. The patella was assessed and excess synovium and osteophytes around the patellar articulation were removed. The patella was measured with a caliper, cut freehand with a saw using caliper measurements, sized, and then drilled for an oval three-pegged patella component. Periarticular injection was used in the suprapatellar pouch and distal quadriceps muscle. Whitesides's line was assessed on the femur. An intra-medullary 5 degree cutting guide was pinned to the femur, and a distal femoral cut was made with an oscillating saw. An additional 2 mm resection was used due to the deep femoral sulcus, and deficient condyle.My credentialing assistant held Hohmann retractors and an [place] retractor to protect the medial and lateral collateral ligaments, the patellar tendon, the skin and the other soft tissues. An anterior referencing guide was applied with external rotation of Choose an item. to match Whitesides line. A 5-in-1 Journey II cutting guide was then applied and pinned to the femur. The posterior, anterior, and all chamfer cuts were made with the oscillating saw. An extramedullary guide was pinned to the tibia and rotational alignment and the planned resection thickness assessed. An external alignment aura was used to verify the planned cut in the varus-valgus plane and regarding posterior slope referencing the tibial tubercle, the tibial shaft, the ankle joint, and the second metatarsal. The upper tibia was cut made with an oscillating saw. My credentialing assistant held Hohmann retractors and a posterior cruciate ligament retractor to protect the medial and lateral collateral ligaments, the patellar tendon, the skin, the peroneal nerve and the other soft tissues. The upper tibia was sized with a trial baseplate. The posterior compartment was cleared of osteophytes and loose bodies, and posterior capsule released. Shaila-articular injection was used in the posterior compartment. The box cut for a posterior stabilized component was made. A preliminary reduction was performed with a trial femur, trial tibial baseplate and trial polyethylene. Soft-tissue balancing was now performed, and extension and rotation of the alignments was checked using a guide aura in the tibial trial and a guide pin in the femur. No additional releases were required. The stability was assessed using different thicknesses of tibial articular surface to find satisfactory stability and good range of motion. The rotation of the tibial component was marked on the upper tibia. Final trial reduction was now performed verifying patella tracking and tibiofemoral stability and alignment. The tibia preparation was completed with a drill, saw, and fin punch at the previously noted rotation. The final implants were verified and opened. Outer gloves were changed by the operating team. The bone cuts were washed thoroughly with the [place] [employer] InterPulse device and dried. Two packages of Palacos bone cement were mixed in powdered form with 1 gm of Vancomycin and 1.2 g tobramycin, then vacuum-mixed with the monomer, and placed into a cement gun. The cut surfaces of the bone were thoroughly dried with Alamo-tip suction and with laparotomy sponges for cement interdigitation. The final components were cemented into place. The knee was kept at full extension while the cement hardened, and excess cement was removed. Tranexamic acid 1 g was redosed intravenously for additional intraoperative hemostasis. A final periarticular injection was used for pain relief. The tourniquet was released, and electrocautery was used for hemostasis. A final check of [id number] and stability was made, and the polyethylene implant final size was chosen. The polyethylene implant was secured to the tibial baseplate, and the knee was reduced a final time. Thorough irrigation was used. Hemovac and pain catheter were used.The arthrotomy was closed with interrupted [id number] #1 PDS suture. The arthrotomy incision was then run with #1 STRATAFIX Symmetric PDS Plus Knotless suture. The subcutaneous tissues were closed with #2-0 Vicryl by my credentialing assistant. The skin was reapproximated with STRATAFIX Spiral MONOCRYL Plus Knotless suture by my credentialing assistant. The skin incision was then covered and reinforced with Dermabond Prineo mesh skin closure dressing. A bulky sterile gauze dressing was applied. Needle and sponge counts were correct. CYNDIE BELL MD Feb 20, 2017 09:30
[2017-02-20] MEDS ORDERED: METOCLOPRAMIDE HCL 10 MG/2 ML VIAL. IV PRN (10:00)
[2017-02-20] MEDS ORDERED: oxyCODONE/APAP 5/325 1 TAB TABLET PO PRN (10:00)
[2017-02-20] MEDS ORDERED: oxyCODONE/APAP 7.5/325 1 TAB TABLET PO PRN (10:00)
[2017-02-20] MEDS ORDERED: ACETAMINOPHEN 325 MG TABLET. PO PRN (10:00)
[2017-02-20] MEDS ORDERED: CALCIUM CARBONATE 500 MG TAB.CHEW PO PRN (10:00)
[2017-02-20] MEDS ORDERED: 0.9 % SODIUM CHLORIDE 10 ML DISP.SYRIN. IV PRN (10:00)
[2017-02-20] MEDS ORDERED: HYDROcodone/APAP 7.5/325MG 1 TAB TABLET PO PRN (10:00)
[2017-02-20] MEDS ORDERED: MORPHINE SULFATE 10 MG/ML VIAL. IV PRN (10:00)
[2017-02-20] MEDS ORDERED: MORPHINE SULFATE 4 MG/ML DISP.SYRIN. IV PRN ×2 (10:00)
[2017-02-20] MEDS ORDERED: traMADol 50 MG TABLET PO PRN ×2 (10:00)
[2017-02-20] MEDS ORDERED: DEXTROSE 50% 25 GM / 50ML DISP.SYRIN. IV PRN (10:00)
[2017-02-20] MEDS ORDERED: fentaNYL PF VIAL 100 MCG/2 ML VIAL IV PRN ×2 (10:00)
[2017-02-20] MEDS ORDERED: MORPHINE SULFATE 2 MG/ML DISP.SYRIN. IV PRN (10:00)
[2017-02-20] MEDS ORDERED: PROCHLORPERAZINE 10 MG/2 ML VIAL. IV PRN (10:00)
[2017-02-20] MEDS ORDERED: diphenhydrAMINE 50 MG/ML VIAL IV PRN (10:00)
[2017-02-20] MEDS ORDERED: ZOLPIDEM 5 MG TABLET. PO PRN (10:00)
[2017-02-20] MEDS ORDERED: PROCHLORPERAZINE 5 MG TABLET. PO PRN (10:00)
--- NOTE | 2017-02-20 10:33 | RAD ---
Indication: Left knee replacement. Time of exam 10:22 AM 2 views left knee demonstrate postop changes of total knee arthroplasty. The prosthetic elements are in good position. No fracture or loosening is seen. Surgical drains are noted. Impression: Satisfactory postop appearance to the left knee.
[2017-02-20] MEDS: SENNOSIDES/DOCUSATE 8.6/50MG TABLET. PO SCH (11:00)
[2017-02-20] MEDS: ESTRADIOL 1 MG TABLET. PO SCH (13:00)
[2017-02-20] MEDS: PROPRANOLOL ER 60 MG CAP.SA.24H. PO SCH (13:00)
[2017-02-20] MEDS: TRIAMTERENE/HCTZ 37.5/25MG TABLET. PO SCH (13:00)
[2017-02-20] MEDS: OXYBUTYNIN CHLORIDE 5 MG TABLET PO SCH ×2 (13:00→20:35)
[2017-02-20] MEDS: LEVOTHYROXINE 112 MCG TABLET PO SCH (13:30)
[2017-02-20] MEDS: HYDROcodone/APAP 10/325 1 TAB TABLET PO PRN ×3 (13:33→19:50)
[2017-02-20] MEDS: CYCLOBENZAPRINE 10 MG TABLET. PO SCH ×2 (13:33→20:35)
[2017-02-20] MEDS: FERROUS SULFATE 325 MG TABLET. PO SCH (17:15)
[2017-02-20] MEDS: IV DEXTROSE 5 %-0.45 % NACL 1,000 ML IV SCH ×2 (17:17→19:59)
[2017-02-20] MEDS: EPINEPHRINE INT ART SCH (18:45)
[2017-02-20] MEDS: BUPIVACAINE MPF 0.25% INT ART SCH (18:45)
[2017-02-20] MEDS: TOTAL VOLUME INT ART SCH (18:45)
[2017-02-20] MEDS ORDERED: VANCOMYCIN 1 GM in IV NORMAL SALINE 250ML 250 ML IV ONE (20:00)
[2017-02-20] MEDS: ASPIRIN ENTERIC COATED 325 MG TABLET.DR. PO SCH (20:35)
[2017-02-20] MEDS: AMITRIPTYLINE HCL 50 MG TABLET PO SCH (20:35)
[2017-02-20] MEDS: ATORVASTATIN CALCIUM 20 MG TABLET PO SCH (20:42)
[2017-02-21] MEDS: HYDROcodone/APAP 10/325 1 TAB TABLET PO PRN ×6 (02:06→18:28)
[2017-02-21 03:38] VITALS: BP 100/61
[2017-02-21] MEDS ORDERED: MAGNESIUM HYDROXIDE 2,400 MG/30 ML ORAL.SUSP. PO PRN (06:00)
[2017-02-21] MEDS: LEVOTHYROXINE 112 MCG TABLET PO SCH (06:27)
[2017-02-21] MEDS: BUPIVACAINE MPF 0.25% INT ART SCH (06:28)
[2017-02-21] MEDS: EPINEPHRINE INT ART SCH (06:28)
[2017-02-21] MEDS: TOTAL VOLUME INT ART SCH (06:28)
[2017-02-21 07:12] VITALS: BP 121/70
[2017-02-21 07:25] LABS: HEMATOCRIT 30.4 % (36.0-47.0); HEMOGLOBIN 10.1 g/dL (12.0-15.5)
[2017-02-21] MEDS: FERROUS SULFATE 325 MG TABLET. PO SCH ×2 (08:17→15:11)
[2017-02-21] MEDS: CYCLOBENZAPRINE 10 MG TABLET. PO SCH ×3 (08:18→20:55)
[2017-02-21] MEDS: OXYBUTYNIN CHLORIDE 5 MG TABLET PO SCH ×2 (08:18→20:54)
[2017-02-21] MEDS: ASPIRIN ENTERIC COATED 325 MG TABLET.DR. PO SCH ×2 (08:18→20:54)
[2017-02-21] MEDS: MULTIVITAMIN with MINERAL TABLET. PO SCH (08:18)
[2017-02-21] MEDS: SENNOSIDES/DOCUSATE 8.6/50MG TABLET. PO SCH (08:18)
[2017-02-21] MEDS: ESTRADIOL 1 MG TABLET. PO SCH (08:18)
[2017-02-21] MEDS: PROPRANOLOL ER 60 MG CAP.SA.24H. PO SCH (08:22)
[2017-02-21 08:23] VITALS: BP 106/60
--- NOTE | 2017-02-21 10:16 | PDOC ---
PROGRESS NOTES Subjective Subjective No complaints Objective Vital Signs Vital Signs Date Time Temp Pulse Resp B/P (MAP) Pulse Ox O2 Delivery O2 Flow Rate FiO2 02/21/17 09:19 20 02/21/17 08:23 60 106/60 (75) Room Air 02/21/17 07:12 98.2 96 98.2 02/20/17 15:00 2.0 Physical Exam Dressing dry. Pain catheter and Hemovac in place. Good dorsiflexion and plantarflexion of the foot with no evidence of neurovascular injury or DVT. Calves are soft and non-tender. Negative Homans. Peripheral pulses and light touch sensation intact. Labs Laboratory Tests Test 02/21/17 06:49 Hemoglobin 10.1 g/dL (12.0-15.5) Hematocrit 30.4 % (36.0-47.0) Mean Corpuscular Hemoglobin Concent 33 g/dL (31-37) Laboratory Tests Test 02/21/17 06:49 Hemoglobin 10.1 g/dL (12.0-15.5) Hematocrit 30.4 % (36.0-47.0) Mean Corpuscular Hemoglobin Concent 33 g/dL (31-37) Imaging Postoperative x-rays reviewed by me, showing satisfactory total knee replacement , with no apparent complications. Assessment Assessment POD #1 TKA Problems: Plan Plan of Care Continue POC including DVT prophylaxis and physical therapy CYNDIE ROGERS MD Feb 21, 2017 10:16
[2017-02-21] MEDS: TRIAMTERENE/HCTZ 37.5/25MG TABLET. PO SCH (11:47)
[2017-02-21 12:04] VITALS: BP 134/65
[2017-02-21] MEDS ORDERED: BISACODYL 10 MG SUPP.RECT. PR PRN (16:00)
[2017-02-21 18:00] VITALS: BP 112/65
[2017-02-21] MEDS: AMITRIPTYLINE HCL 50 MG TABLET PO SCH (20:54)
[2017-02-21] MEDS: ATORVASTATIN CALCIUM 20 MG TABLET PO SCH (20:54)
[2017-02-22] MEDS: HYDROcodone/APAP 10/325 1 TAB TABLET PO PRN ×5 (01:57→20:19)
[2017-02-22] MEDS: LEVOTHYROXINE 112 MCG TABLET PO SCH (06:20)
[2017-02-22 06:39] VITALS: BP 128/75
[2017-02-22] MEDS: MULTIVITAMIN with MINERAL TABLET. PO SCH (08:25)
[2017-02-22] MEDS: PROPRANOLOL ER 60 MG CAP.SA.24H. PO SCH (08:26)
[2017-02-22] MEDS: SENNOSIDES/DOCUSATE 8.6/50MG TABLET. PO SCH (08:26)
[2017-02-22] MEDS: FERROUS SULFATE 325 MG TABLET. PO SCH ×2 (08:26→17:00)
[2017-02-22] MEDS: CYCLOBENZAPRINE 10 MG TABLET. PO SCH ×3 (08:26→20:18)
[2017-02-22] MEDS: ASPIRIN ENTERIC COATED 325 MG TABLET.DR. PO SCH ×2 (08:27→20:19)
[2017-02-22] MEDS: ESTRADIOL 1 MG TABLET. PO SCH (08:27)
[2017-02-22] MEDS: OXYBUTYNIN CHLORIDE 5 MG TABLET PO SCH ×2 (08:27→20:19)
[2017-02-22 08:32] VITALS: BP 114/72
[2017-02-22 11:45] LABS: HEMATOCRIT 29.9 % (36.0-47.0); HEMOGLOBIN 10.2 g/dL (12.0-15.5)
[2017-02-22] MEDS: TRIAMTERENE/HCTZ 37.5/25MG TABLET. PO SCH (11:55)
[2017-02-22 11:56] VITALS: BP 120/72
--- NOTE | 2017-02-22 12:37 | PDOC ---
PROGRESS NOTES Subjective Subjective Doing well. Only reports mild pain increase from yesterday. Objective Vital Signs Vital Signs Date Time Temp Pulse Resp B/P (MAP) Pulse Ox O2 Delivery O2 Flow Rate FiO2 02/22/17 11:56 83 16 120/72 (88) Room Air 02/22/17 06:39 97.8 97 97.8 02/20/17 15:00 2.0 Physical Exam Expected swelling. Pain catheter and drain have been removed. Incision with spotty drainage only from drain sites. Prineo intact and dry. Calf soft and nontender. Negative Homans sign. Good AROM ankle. Peripheral pulses and light touch sensation intact. Labs Laboratory Tests Test 02/21/17 06:49 02/22/17 11:20 Hemoglobin 10.1 g/dL (12.0-15.5) 10.2 g/dL (12.0-15.5) Hematocrit 30.4 % (36.0-47.0) 29.9 % (36.0-47.0) Mean Corpuscular Hemoglobin Concent 33 g/dL (31-37) 34 g/dL (31-37) Laboratory Tests Test 02/22/17 11:20 Hemoglobin 10.2 g/dL (12.0-15.5) Hematocrit 29.9 % (36.0-47.0) Mean Corpuscular Hemoglobin Concent 34 g/dL (31-37) Assessment Assessment POD 2 TKA Problems: Plan Plan of Care Continue DVT prophylaxis and physical therapy. Planned discharge tomorrow to home with home health. Office F/U in 10-14 days. TEODORO WILKERSON Feb 22, 2017 12:37
--- NOTE | 2017-02-22 17:18 | PATHOLOGY ---
PATHOLOGY REPORT * * * * * * * * FINAL DIAGNOSIS: Segment of bone and soft tissue, left total knee arthroplasty: - Advanced degenerative arthritis. (JPM/db; 02/22/2017) REPORT ELECTRONICALLY SIGNED BY: Alberto Manuel M.D. DATE/TIME: 02/22/2017 17:17 * * * * * * * * GROSS PATHOLOGY: Received in formalin labeled "Myke Swanson, left knee bone and tissue," are multiple segments of bone, including tibial plateau, measuring 13.4 x 9.6 x 2.6 cm in aggregate dimensions; meniscus is present. The specimen shows focal eburnation of the articular surfaces. Commercial Development Manager sections of bone and soft tissue are submitted in cassette A1, following decalcification. INITIAL CPT CODE(S): A; 25399, 35983 Professional services [place] [place] [address] Technical services performed by [facility] at [address] [place] [address], [facility] [address], [place] [address]. SPECIMEN(S) RECEIVED: A.Left knee bone and tissue CLINICAL HISTORY: Right knee OA PATIENT: MYKE SWANSON /AGE: [id number] 1955 (Age: 61) PATIENT #: [id number] ALT CASE #: SPECIMEN COLLECTION DATE: 02/20/2017 SPECIMEN RECEIVED DATE: 02/20/2017 [facility] - [address] [place] [id number] - PHONE: [phone] * * * END OF REPORT * * *
[2017-02-22 18:00] VITALS: BP 103/58
[2017-02-22] MEDS: AMITRIPTYLINE HCL 50 MG TABLET PO SCH (20:19)
[2017-02-22] MEDS: ATORVASTATIN CALCIUM 20 MG TABLET PO SCH (20:19)
[2017-02-23 06:33] VITALS: BP 135/67
[2017-02-23] MEDS: LEVOTHYROXINE 112 MCG TABLET PO SCH (06:42)
[2017-02-23] MEDS: HYDROcodone/APAP 10/325 1 TAB TABLET PO PRN ×3 (06:44→14:46)
[2017-02-23] MEDS: SENNOSIDES/DOCUSATE 8.6/50MG TABLET. PO SCH (08:03)
[2017-02-23] MEDS: FERROUS SULFATE 325 MG TABLET. PO SCH (08:03)
[2017-02-23] MEDS: ASPIRIN ENTERIC COATED 325 MG TABLET.DR. PO SCH (08:03)
[2017-02-23] MEDS: CYCLOBENZAPRINE 10 MG TABLET. PO SCH ×2 (08:03→13:38)
[2017-02-23] MEDS: OXYBUTYNIN CHLORIDE 5 MG TABLET PO SCH (08:03)
[2017-02-23] MEDS: ESTRADIOL 1 MG TABLET. PO SCH (08:04)
[2017-02-23] MEDS: MULTIVITAMIN with MINERAL TABLET. PO SCH (08:04)
[2017-02-23] MEDS: TRIAMTERENE/HCTZ 37.5/25MG TABLET. PO SCH (09:00)
[2017-02-23] MEDS: PROPRANOLOL ER 60 MG CAP.SA.24H. PO SCH (09:00)
[2017-02-23 09:10] LABS: HEMATOCRIT 29.8 % (36.0-47.0); HEMOGLOBIN 10.2 g/dL (12.0-15.5)
--- NOTE | 2017-02-23 13:20 | PDOC ---
PROGRESS NOTES Subjective Subjective Doing well. Planning for discharge later today after PT. Objective Vital Signs Vital Signs Date Time Temp Pulse Resp B/P (MAP) Pulse Ox O2 Delivery O2 Flow Rate FiO2 02/23/17 10:30 Room Air 02/23/17 09:00 77 96/56 02/23/17 06:44 18 96 02/23/17 06:33 97.7 97.7 02/20/17 15:00 2.0 Physical Exam Expected swelling. Prineo dressing intact and dry. Calf soft and nontender. Negative Homans. Good AROM ankle. Peripheral pulses and light touch sensation intact. Labs Laboratory Tests Test 02/22/17 11:20 02/23/17 09:02 Hemoglobin 10.2 g/dL (12.0-15.5) 10.2 g/dL (12.0-15.5) Hematocrit 29.9 % (36.0-47.0) 29.8 % (36.0-47.0) Mean Corpuscular Hemoglobin Concent 34 g/dL (31-37) 34 g/dL (31-37) Laboratory Tests Test 02/23/17 09:02 Hemoglobin 10.2 g/dL (12.0-15.5) Hematocrit 29.8 % (36.0-47.0) Mean Corpuscular Hemoglobin Concent 34 g/dL (31-37) Assessment Assessment POD 3 TKA Problems: Plan Plan of Care Discharge later today, to home with home health. Continue DVT prophylaxis and physical therapy. F/U 10-14 days. TEODORO WILKERSON Feb 23, 2017 13:20
--- NOTE | 2017-02-23 13:24 | PDOC3 ---
Discharge Summary Visit Information Date of Admission: Feb 20, 2017 Date of Discharge: Feb 23, 2017 Admitting Diagnosis: left knee osteoarthritis pain Brief Hospital Course Allergies Allergies Coded Allergies Type Severity Reaction Last Updated Verified baclofen Allergy Severe Anaphylaxis 02/20/17 Yes gabapentin Allergy Severe Anaphylaxis 02/20/17 Yes tizanidine Allergy Severe Anaphylaxis 02/20/17 Yes celecoxib Allergy Intermediate 02/20/17 Yes I S O L A T I O N *CONTACT* Allergy Unknown 02/20/17 Yes ibuprofen Adverse Reaction Intermediate Swelling 02/20/17 Yes ketorolac Adverse Reaction Intermediate Swelling 02/20/17 Yes Vital Signs Vital Signs Date Time Temp Pulse Resp B/P (MAP) Pulse Ox O2 Delivery O2 Flow Rate FiO2 02/23/17 10:30 Room Air 02/23/17 09:00 77 96/56 02/23/17 06:44 18 96 02/23/17 06:33 97.7 97.7 Lab Results Laboratory Tests Test 02/22/17 11:20 02/23/17 09:02 Hemoglobin 10.2 g/dL (12.0-15.5) 10.2 g/dL (12.0-15.5) Hematocrit 29.9 % (36.0-47.0) 29.8 % (36.0-47.0) Mean Corpuscular Hemoglobin Concent 34 g/dL (31-37) 34 g/dL (31-37) Laboratory Tests Test 02/23/17 09:02 Hemoglobin 10.2 g/dL (12.0-15.5) Hematocrit 29.8 % (36.0-47.0) Mean Corpuscular Hemoglobin Concent 34 g/dL (31-37) Brief Hospital Course 61 year old who presented with left knee osteoarthritis, for elective total knee arthroplasty. The patient underwent left total knee arthroplasty under general anesthesia the day of admission. Perioperative antibiotics and DVT prophylaxis were used. Postoperatively physical therapy and case management were consulted. The patient progressed and is stable for discharge. Discharge Information Condition at Discharge: Stable Follow Up: Weeks (2) Disposition/Orders: D/C to Home w/ HH Scheduled Acetaminophen (Pain & Fever), 2 TAB PO DAILY, (Reported) Amitriptyline Hcl (Amitriptyline Hcl), 1 TAB PO QHS, (Reported) Atorvastatin Calcium (Atorvastatin Calcium), 1 TAB PO DAILY, (Reported) Buprenorphine (Butrans), 1 PATCH TP WEEKLY, (Reported) Cyclobenzaprine Hcl (Cyclobenzaprine Hcl), 10 MG PO TID, (Reported) Estradiol (Estradiol), 1 TAB PO DAILY, (Reported) Ferrous Sulfate (Ferrous Sulfate), 1 TAB PO BID, (Reported) Levothyroxine Sodium (Levothyroxine Sodium), 1 TAB PO DAILY, (Reported) Oxybutynin Chloride (Oxybutynin Chloride Er), 10 MG PO BID, (Reported) Propranolol Hcl (Inderal La), 2 CAP PO DAILY, (Reported) Triamterene/Hydrochlorothiazid (Triamterene-Hctz 37.5-25 Mg Cp), 1 CAP PO DAILY, (Reported) Patient Instructions Patient Instructions Patient Instructions Continue to WBAT with walker. Keep dressing dry and intact. F/U with [facility] in 10-14 days. Call for appointment. Physical therapy for TKA Continue DVT prophylaxis. TEODORO WILKERSON Feb 23, 2017 13:24
[2017-02-23 14:00] VITALS: BP 101/66
[2017-02-23] MEDS ORDERED: HYDR-2766 PO (14:28)
[2017-02-27] MEDS ORDERED: NON FORMULARY ITEM (Buprenorphine (Butrans) 1 PATCH) TP SCH (09:00)
== END 2017-02-23 14:55 | disposition home health service (06) | DRG 470 ==
LOC: OPSVCIP 05:47 → 4 SOUTHEST 10:52
PROVIDERS: ADMIT Orthopaedic Surgery; ATTEND Orthopaedic Surgery
PROC: 0SRD0J9 Replacement of Left Knee Joint with Synthetic Substitute, Cemented, Open Approach (ICD-10-PCS; principal; 2017-02-20 07:10)
DX: M17.12 Unilateral primary osteoarthritis, left knee (principal); I10 Essential (primary) hypertension; E78.5 Hyperlipidemia, unspecified; E03.9 Hypothyroidism, unspecified; K21.9 Gastro-esophageal reflux disease without esophagitis; Z96.651 Presence of right artificial knee joint; Z82.49 Family history of ischemic heart disease and other diseases of the circulatory system; Z88.8 Allergy status to other drugs, medicaments and biological substances; Z90.710 Acquired absence of both cervix and uterus; Z87.891 Personal history of nicotine dependence
CPT/HCPCS: 36415; 73560; 85014; 85018; 86850; 86900; 86901; 88305; 88311; A6539; J0171; J0690; J1100; J2001; J2250; J2270; J2405; J2704; J2795; J3010; J3260; J3370; J3490; J7030; J7050; J7120; 97116; 97150; 97530; 97535; C1769

== ENCOUNTER → 2017-12-31 | Outpatient (CLI) | payer BC ==
[2017-12-31 10:00] LABS: ADD MAN DIFF? NO
[2017-12-31 10:07] LABS: BASO # 0.1 x10^3/uL (0.0-0.2); BASO % 1 % (0-3); EOS # 0.2 x10^3/uL (0.0-0.7); EOS % 3 % (0-3); HEMOGLOBIN 12.3 g/dL (12.0-15.5); LYMPH # 2.3 x10^3/uL (1.0-4.8); LYMPH % 28 % (24-48); MEAN CORPUSCULAR HEMOGLOBIN 30 pg (25-35); MEAN CORPUSCULAR HGB CONC 34 g/dL (31-37); MEAN CORPUSCULAR VOLUME 86 fL (79-100); MONO # 0.7 x10^3/uL (0.0-1.1); MONO % 8 % (0-9); NEUT % 61 % (31-73); PLATELET COUNT 302 x10^3/uL (140-400); RED BLOOD COUNT 4.19 x10^6/uL (3.50-5.40); WHITE BLOOD COUNT 8.3 x10^3/uL (4.0-11.0)
[2017-12-31 10:37] LABS: ALBUMIN 3.1 g/dL (3.4-5.0); ANION GAP 11 (6-14); BLOOD UREA NITROGEN 18 mg/dL (7-20); CALCIUM 8.6 mg/dL (8.5-10.1); CARBON DIOXIDE 25 mmol/L (21-32); CHLORIDE 102 mmol/L (98-107); GLUCOSE 107 mg/dL (70-99); POTASSIUM 3.9 mmol/L (3.5-5.1); SODIUM 138 mmol/L (136-145); TOTAL BILIRUBIN 0.4 mg/dL (0.2-1.0)
== END | disposition home or self-care (01) ==
LOC: SURGPAT 09:36
DX: Z01.818 Encounter for other preprocedural examination (principal); I10 Essential (primary) hypertension; E78.5 Hyperlipidemia, unspecified; E03.9 Hypothyroidism, unspecified
CPT/HCPCS: 36415; 80048; 82040; 82247; 85025

== ENCOUNTER → 2018-01-14 | Day surgery (SDC) | payer BC ==
[~2018-01-14] MED LIST changes: -AMIT50TA PO; -ATOR20TA58 PO; -BUPR1PAT6 TP; -BUPR1TAB17 SL; -CYCL10TA2 PO; +DEXAMETHASONE SOD PHOS 20 MG/5 ML VIAL.; -ESTR1TAB15 PO; +FAMOTIDINE 20 MG/2 ML VIAL; -FERR-26 PO; +GLYCOPYRROLATE 1 MG/5 ML VIAL.; -HYDR8TAB29 PO; -HYDROmorphone 2 MG/ML VIAL IV PRN; +IOHEXOL 300 MG/ML 100ML VIAL.; -LEVO112T4 PO; -LIDOCAINE 1% 1 ML SYRINGE. ID PRN; +LIDOCAINE 1% PF 2 ML VIAL. ID; +LIDOCAINE 2% PF Vial for OR 5 ML VIAL.; -MEPERIDINE PF 25 MG/ML VIAL. IV PRN; -METH750T2 PO; +METOCLOPRAMIDE HCL 10 MG/2 ML VIAL.; +MIDAZOLAM HCL/PF 2 MG/2 ML VIAL.; -MIDAZOLAM HCL/PF 2 MG/2 ML VIAL. IV PRN; -MORPHINE SULFATE 4 MG/ML DISP.SYRIN. IV PRN; -MULT-650 PO; +NEOSTIGMINE METHYLSULFATE 5 MG/5 ML SYRINGE.; +ONDANSETRON PF 4 MG/2 ML VIAL.; +ONDANSETRON PF 4 MG/2 ML VIAL. IV; -OXYB10TA PO; -OXYM15TA PO; -PROCHLORPERAZINE 10 MG/2 ML VIAL. IV PRN; -PROP60CA8 PO; +PROPOFOL 20 ML IV; +ROCURONIUM 50 MG/5 ML VIAL.; +SCOPOLAMINE 1.5MG PATCH. TD; +SEVOFLURANE 61 TO 120 MINUTES. IH; -TRIA1CAP3 PO; -[UNRECOGNIZED DRUG - CODE] PO; -diphenhydrAMINE 50 MG/ML VIAL IV PRN; +fentaNYL PF VIAL 100 MCG/2 ML VIAL; +fentaNYL PF VIAL 100 MCG/2 ML VIAL IV; -fentaNYL PF VIAL 100 MCG/2 ML VIAL IV PRN
[2018-01-14] MEDS: IV RINGERS,LACTATED 1000ML 1,000 ML IV (07:11)
[2018-01-14] MEDS: SCOPOLAMINE 1.5MG PATCH. TD (07:17)
[2018-01-14] MEDS: IOHEXOL 300 MG/ML 100ML VIAL. (08:03)
[2018-01-14] MEDS: BUPIVAC MPF-EPI 0.5%-1:200000 30 ML VIAL. INJ (08:03)
[2018-01-14] MEDS: SURGICEL HEMOSTAT 4X8 EACH. (08:05)
[2018-01-14] MEDS: PROCHLORPERAZINE 10 MG/2 ML VIAL. IV ×2 (09:12→12:48)
[2018-01-14] MEDS: fentaNYL PF VIAL 100 MCG/2 ML VIAL IV ×4 (09:12→10:19)
[2018-01-14] MEDS: MORPHINE SULFATE 4 MG/ML DISP.SYRIN. IV ×7 (09:21→13:04)
[2018-01-14] MEDS: oxyCODONE/APAP 7.5/325 1 TAB TABLET PO ×2 (10:30→14:50)
[2018-01-14] MEDS: MEPERIDINE PF 25 MG/ML VIAL. IV (11:25)
[2018-01-14 12:44] LABS: HEMATOCRIT 37.5 % (36.0-47.0); HEMOGLOBIN 12.3 g/dL (12.0-15.5); MEAN CORPUSCULAR HGB CONC 33 g/dL (31-37)
[2018-01-14 12:57] LABS: ANION GAP 9 (6-14); BLOOD UREA NITROGEN 13 mg/dL (7-20); CALCIUM 8.1 mg/dL (8.5-10.1); CARBON DIOXIDE 27 mmol/L (21-32); CHLORIDE 103 mmol/L (98-107); GLUCOSE 124 mg/dL (70-99); POTASSIUM 3.6 mmol/L (3.5-5.1); SODIUM 139 mmol/L (136-145)
[2018-01-14 12:58] LABS: LIPASE 151 U/L (73-393)
== END | disposition home or self-care (01) ==
LOC: SURG 06:26
DX: K80.10 Calculus of gallbladder with chronic cholecystitis without obstruction (principal); Z87.891 Personal history of nicotine dependence; I10 Essential (primary) hypertension; E03.9 Hypothyroidism, unspecified; E78.00 Pure hypercholesterolemia, unspecified; E66.9 Obesity, unspecified; Z68.41 Body mass index [BMI] 40.0-44.9, adult; K21.9 Gastro-esophageal reflux disease without esophagitis; G43.909 Migraine, unspecified, not intractable, without status migrainosus; M19.90 Unspecified osteoarthritis, unspecified site; Z90.710 Acquired absence of both cervix and uterus; Z79.899 Other long term (current) drug therapy; Z96.653 Presence of artificial knee joint, bilateral; Z98.1 Arthrodesis status; Z98.890 Other specified postprocedural states; Z82.5 Family history of asthma and other chronic lower respiratory diseases; Z82.61 Family history of arthritis; Z82.49 Family history of ischemic heart disease and other diseases of the circulatory system; Z98.42 Cataract extraction status, left eye; Z98.41 Cataract extraction status, right eye; Z86.010 Personal history of colon polyps; Z86.14 Personal history of Methicillin resistant Staphylococcus aureus infection; Z88.5 Allergy status to narcotic agent; Z88.8 Allergy status to other drugs, medicaments and biological substances
CPT/HCPCS: 36415; 47563; 74300; 80048; 83690; 85014; 85018; 88304; A7015; J0690; J0780; J1100; J2175; J2250; J2270; J2405; J2704; J2710; J2765; J3010; J3490; J7030; J7120; Q9967; S0028

== ENCOUNTER → 2018-02-21 | Day surgery (SDC) | payer BC ==
[~2018-02-21] MED LIST changes: -DEXAMETHASONE SOD PHOS 20 MG/5 ML VIAL.; -FAMOTIDINE 20 MG/2 ML VIAL; -GLYCOPYRROLATE 1 MG/5 ML VIAL.; -IOHEXOL 300 MG/ML 100ML VIAL.; -LIDOCAINE 2% PF Vial for OR 5 ML VIAL.; -METOCLOPRAMIDE HCL 10 MG/2 ML VIAL.; -MIDAZOLAM HCL/PF 2 MG/2 ML VIAL.; +MORPHINE SULFATE 2 MG/ML DISP.SYRIN. IV; -NEOSTIGMINE METHYLSULFATE 5 MG/5 ML SYRINGE.; -ONDANSETRON PF 4 MG/2 ML VIAL.; +PROCHLORPERAZINE 10 MG/2 ML VIAL. IV; -PROPOFOL 20 ML IV; -ROCURONIUM 50 MG/5 ML VIAL.; -SCOPOLAMINE 1.5MG PATCH. TD; -SEVOFLURANE 61 TO 120 MINUTES. IH; -fentaNYL PF VIAL 100 MCG/2 ML VIAL
[2018-02-21] MEDS: IV RINGERS,LACTATED 1000ML 1,000 ML IV (12:23)
== END | disposition home or self-care (01) ==
LOC: ENDOS 11:53
DX: Z46.59 Encounter for fitting and adjustment of other gastrointestinal appliance and device (principal); K29.50 Unspecified chronic gastritis without bleeding; E03.9 Hypothyroidism, unspecified; I11.9 Hypertensive heart disease without heart failure; K21.9 Gastro-esophageal reflux disease without esophagitis; Z86.010 Personal history of colon polyps; Z90.49 Acquired absence of other specified parts of digestive tract; Z79.899 Other long term (current) drug therapy; Z88.8 Allergy status to other drugs, medicaments and biological substances; Z90.710 Acquired absence of both cervix and uterus; Z96.653 Presence of artificial knee joint, bilateral; E78.00 Pure hypercholesterolemia, unspecified; Z98.42 Cataract extraction status, left eye; Z98.41 Cataract extraction status, right eye; Z96.1 Presence of intraocular lens; E66.9 Obesity, unspecified; M19.90 Unspecified osteoarthritis, unspecified site; Z87.891 Personal history of nicotine dependence; Z86.14 Personal history of Methicillin resistant Staphylococcus aureus infection; Z82.49 Family history of ischemic heart disease and other diseases of the circulatory system; Z68.38 Body mass index [BMI] 38.0-38.9, adult
CPT/HCPCS: 43247

== ENCOUNTER → 2020-02-17 | Outpatient (CLI) | payer OTHER ==
[2018-02-21 13:30] VITALS: BP 140/67
[~2020-02-17] MED LIST changes: +AMIT50TA PO; +ATOR20TA58 PO; +BUPR1PAT6 TP; +BUPR1TAB17 SL; +CYCL10TA2 PO; +DOCU50CA9 PO; +ESTR-113 PO; +FERR325T14 PO; +HYDR-2769 PO; +HYDR8TAB29 PO; +LEVO112T49 PO; -LIDOCAINE 1% PF 2 ML VIAL. ID; +METH750T2 PO; -MORPHINE SULFATE 2 MG/ML DISP.SYRIN. IV; +MULT-650 PO; +OMEP20CA16 PO; -ONDANSETRON PF 4 MG/2 ML VIAL. IV; +OXYB10TA26 PO; +OXYC1TAB19 PO; +OXYM15TA PO; -PROCHLORPERAZINE 10 MG/2 ML VIAL. IV; +PROP60CA36 PO; +TRIA1CAP3 PO; +[UNRECOGNIZED DRUG - CODE] PO; -fentaNYL PF VIAL 100 MCG/2 ML VIAL IV
--- NOTE | 2020-02-18 11:51 | RAD ---
DATE: 02/17/2020 10:29 AM EXAM: MAMMO MAXIMINO SCREENING BILATERAL HISTORY: screening COMPARISON: 11/15/2018, 10/22/2017 TECHNIQUE: Bilateral CC and MLO views of the breasts were performed. Bilateral breast tomosynthesis was performed in CC and MLO projections. This study was interpreted with the benefit of Computerized Aided Detection (CAD). FINDINGS: Breast Density: SCATTERED The breast parenchyma shows scattered fibroglandular densities. Breast parenchyma level B No suspicious masses, microcalcifications or architectural distortion is present to suggest malignancy in either breast. The visualized axillae are unremarkable. IMPRESSION: No mammographic evidence of malignancy. BI-RADS CATEGORY: 1 NEGATIVE RECOMMENDED FOLLOW-UP: 12M 12 MONTH FOLLOW-UP Annual screening mammography is recommended, unless clinically indicated sooner based on symptoms or change in physical exam. PQRS compliance statement: Patient information was entered into a reminder system with a target due date 02/17/2021 for the next mammogram. Mammography is a sensitive method for finding small breast cancers, but it does not detect them all and is not a substitute for careful clinical examination. A negative mammogram does not negate a clinically suspicious finding and should not result in delay in biopsying a clinically suspicious abnormality. "Our facility is accredited by the [employer] Mammography Program."
== END | disposition home or self-care (01) ==
LOC: MAMMO 10:28
PROVIDERS: ATTEND Internal Medicine
DX: Z12.31 Encounter for screening mammogram for malignant neoplasm of breast (principal); N64.89 Other specified disorders of breast
CPT/HCPCS: 77063; 77067

== ENCOUNTER → 2021-03-03 | Outpatient (CLI) | payer OTHER ==
[2018-02-21 13:30] VITALS: BP 140/67
[~2021-03-03] MED LIST changes: +CEPH500C PO; +CYCL10TA19 PO; -CYCL10TA2 PO; +METH-562 PO; -METH750T2 PO
--- NOTE | 2021-03-03 16:33 | RAD ---
MG BILAT SCREEN+MAXIMINO 03/03/2021 2:25 PM INDICATION: Asymptomatic screening mammogram. COMPARISON: 10/22/2017, 11/15/2018, 02/17/2020 TECHNIQUE: 3D tomosynthesis was performed in CC and MLO projections. 2D views were obtained from the 3D data. CAD was utilized as needed. FINDINGS: Breast density: Category B: There are scattered areas of fibroglandular density. Right breast: There are no suspicious microcalcifications, masses or areas of architectural distortio n. Left breast: There are no suspicious microcalcifications, masses or areas of architectural distortion . Bilateral mammogram is compared to prior examinations appears unchanged. IMPRESSION: Negative bilateral mammogram. BI-RADS category: 1; Negative Recommendations: Recommend annual screening mammography in one year. Electronically signed by: Margi Swenson MD (03/03/2021 4:31 PM) [id number]
== END ==
LOC: MAMMO 13:50
PROVIDERS: ATTEND Internal Medicine
DX: Z12.31 Encounter for screening mammogram for malignant neoplasm of breast (principal)
CPT/HCPCS: 77063; 77067

== ENCOUNTER 2021-08-01 08:42 | Emergency (ER) | payer MEDICARE, OTHER ==
[~2021-08-01] VITALS: Ht 162.6 cm; Wt 86.3 kg
[~2021-08-01 08:42] MED LIST changes: -CEPH500C PO
--- NOTE | 2021-08-01 08:49 | PHYS DOC ---
Past Medical History Past Medical History: Hypertension Past Surgical History: Cholecystectomy, Hysterectomy, Knee Replacement, Other Additional Past Surgical Histo: R ear; bilat knees; L ankle; Smoking Status: Former Smoker Alcohol Use: Rarely Drug Use: None General Adult EDM: Chief Complaint: TOE PROBLEM HPI: HPI: Patient is a 66 year old female who presents here with an acute laceration of her right great toe. The injury occurred just prior to arrival. She reports that she was getting up out of bed, and she got her foot tangled in the thread of a blanket, and then she subsequently lacerated her toe. She has a large wound on the dorsum of her toe, adjacent to the nailbed and cuticle. She is able to move her toe. Denies numbness. No active or brisk bleeding at this time. She denies crush injury or other injury. Denies head injury or loss of consciousness. No dizziness. Unsure of tetanus status. No other complaints. She takes oxycodone regularly for low back pain. She took a dose prior to arrival Review of Systems: Review of Systems: Constitutional: Denies fever or chills. [] Respiratory: Denies cough or shortness of breath. [] Cardiovascular: Denies chest pain or edema. [] Musculoskeletal: Right great toe pain, laceration, injury Integument: Laceration of the right great toe Neurologic: Denies headache, focal weakness or sensory changes. [] Psychiatric: Denies depression or anxiety. [] Heart Score: C/O Chest Pain: No Risk Factors: Risk Factors: DM, Current or recent (<one month) smoker, HTN, HLP, family history of CAD, obesity. Risk Scores: Score 0 - 3: 2.5% MACE over next 6 weeks - Discharge Home Score 4 - 6: 20.3% MACE over next 6 weeks - Admit for Clinical Observation Score 7 - 10: 72.7% MACE over next 6 weeks - Early Invasive Strategies Allergies: Allergies: Allergies Coded Allergies Type Severity Reaction Last Updated Verified baclofen Allergy Severe Anaphylaxis 02/21/18 Yes gabapentin Allergy Severe Anaphylaxis 02/21/18 Yes tizanidine Allergy Severe Anaphylaxis 02/21/18 Yes celecoxib Allergy Intermediate 02/21/18 Yes ibuprofen Adverse Reaction Intermediate Swelling 02/21/18 Yes ketorolac Adverse Reaction Intermediate Swelling 02/21/18 Yes Physical Exam: PE: Constitutional: Well developed, well nourished, no acute distress, non-toxic appearance. [] HENT: Normocephalic, atraumatic Cardiovascular: Well perfused appearing, +2 DP and PT pulse of the right foot, no peripheral edema Lungs & Thorax: Respirations are non-labored Skin: Subcutaneous laceration of the dorsum of the right great toe, with proximal nail avulsed but intact, no nail bed laceration, laceration runs adjacent to the nail and cuticle with extension just laterally on either side of the nail, no brisk or active bleeding; no visible foreign body, bony fragment of distal phalanx fracture is palpated and visualized, soft tissue tenderness Extremities: Laceration and deformity of the right great toe; partial dorsal amputation of the right great toe; proximal nail is slightly avulsed but intact and easily placed back into anatomic position; she is able to fully dorsiflex and plantar flex her right great toe, sensation is intact, soft tissue tenderness, open fracture is visualized. Neurologic: Alert and oriented X 3, normal motor function, normal sensory function, no focal deficits noted. [] Psychologic: Affect normal, judgement normal, mood normal. [] EKG: EKG: [] Radiology/Procedures: Radiology/Procedures: IMAGING REPORT Signed PATIENT: MYKE HORTA ACCOUNT: [id number] : 1955 LOCATION: ER AGE: 66 SEX: F EXAM STATUS: PRE ER ORD. PHYSICIAN: REYNALDO ESPINOZA DO REASON: right great toe injury PROCEDURE: TOES RIGHT EXAM: XR RT TOE 2+ VIEWS 08/01/2021 8:59 AM CLINICAL INDICATION: Right great toe injury COMPARISON: None TECHNIQUE: 3 views of the right great toe FINDINGS: There is a minimally displaced transverse fracture through the base of the great toe distal phalanx. No intra-articular extension. Alignment is normal. Mild soft tissue swelling. IMPRESSION: Minimally displaced fracture of the great toe distal phalanx. Electronically signed by: Laura Galindo MD (08/01/2021 9:36 AM) [id number] DICTATED and SIGNED BY: LAURA GALINDO MD DATE: 08/01/21 [id number] 0 Course & Med Decision Making: Course & Med Decision Making Pertinent Labs and Imaging studies reviewed. (See chart for details) The patient tolerated laceration repair well. She is given a dose of IV Ancef. She does not require any pain medication here or for discharge, as she takes oxycodone at home, has plenty of this reportedly. Tetanus is updated. I discussed home care instructions. I discussed wound care instructions. She is given a postop shoe for discharge. I have referred her to outpatient podiatry for wound check. I did discuss high risk for infection and loss of nail or loss of function, loss of tendon function, especially with open fracture. It is imperative that she follow-up with podiatry as well as her primary care physician. I recommend calling this week to set up an appointment. No current indication for further invasive exams or imaging at this time. Strict return precautions are given. She verbalizes understanding. Post-op shoe provided upon discharge. [place] Disclaimer: Sundar Disclaimer: This electronic medical record was generated, in whole or in part, using a voice recognition dictation system. Laceration Repair Lac Repair Indication: Laceration of the right great toe, open fracture Procedure: The patient was placed in the appropriate position, seated on the ED gurney. 1% Lidocaine was utilized for local anesthesia around the laceration site, digital block performed. Adequate anesthesia is achived. The area was t hen cleaned with Betadine and copiously irrigated with sterile normal saline. The laceration was closed utilizing 2 layer closure. A total of #3 4-0 Vicryl subcuticular sutures were placed. A total of #6 4-0 Ethilon simple interrupted sutures were placed on the skin adjacet to the cuticle and nail. A total of #1 3-0 Prolene simple interrupted suture was placed to tack down the nail. The toe and nail are now in proper anatomic alignment. Adequate wound eversion is achieved. Adequate wound hemostasis is achieved. The wound area was then dressed with [WOUND COVERING]. Total repaired wound length: 5 cm The patient tolerated the procedure well. Complications: none. Departure Departure Impression: Primary Impression: Laceration of right great toe Qualified Codes: S91.211A - Laceration without foreign body of right great toe with damage to nail, initial encounter Additional Impression: Open fracture of distal phalanx of right great toe Qualified Codes: S92.421B - Displaced fracture of distal phalanx of right great toe, initial encounter for open fracture Disposition: HOME / SELF CARE / HOMELESS Condition: STABLE Referrals: VIMAL GIMENEZ MD (PCP) NIDHI VIDES DPM Patient Instructions: Laceration Care, Adult, Toe Fracture Additional Instructions: The full course of antibiotics. You may take your regularly prescribed pain medications as needed. Return to the ER immediately for severe redness, swelling, red streaks, yellow or green drainage coming from your wound, if you are newly injured, if you experience severe pain or any other concerns. Please contact Dr. Vides of podiatry for follow-up. I recommend calling this week. Your sutures will need to be removed in about 10 to 14 days. Keep your wound clean and dry, using soap and water. Avoid submersion or soaking of the wound. Scripts Cephalexin (KEFLEX) 500 Mg Capsule 1 CAP PO BID for 5 Days, #10 CAP Prov: REYNALDO ESPINOZA DO 08/01/21 REYNALDO ESPINOZA DO Aug 01, 2021 08:49
[2021-08-01] MEDS ORDERED: TETANUS AND DIPHTHERIA TOX/PF 0.5 ML DISP.SYRIN. VAX IM ONE (09:00)
[2021-08-01] MEDS ORDERED: LIDOCAINE 1% Multi-Dose 20 ML VIAL. INJ ONE (09:00)
[2021-08-01] MEDS ORDERED: ceFAZolin SODIUM IV Push 1 GM VIAL. IVP ONE (09:15)
--- NOTE | 2021-08-01 09:38 | RAD ---
EXAM: XR RT TOE 2+ VIEWS 08/01/2021 8:59 AM CLINICAL INDICATION: Right great toe injury COMPARISON: None TECHNIQUE: 3 views of the right great toe FINDINGS: There is a minimally displaced transverse fracture through the base of the great toe dista l phalanx. No intra-articular extension. Alignment is normal. Mild soft tissue swelling. IMPRESSION: Minimally displaced fracture of the great toe distal phalanx. Electronically signed by: Laura Galindo MD (08/01/2021 9:36 AM) [id number]
[2021-08-01] MEDS ORDERED: CEPH500C PO (09:53)
[2021-08-01 10:26] VITALS: BP 152/67
== END 2021-08-01 11:05 | disposition home or self-care (01) ==
LOC: ER 08:42
DX: S92.421B Displaced fracture of distal phalanx of right great toe, initial encounter for open fracture (principal); S91.211A Laceration without foreign body of right great toe with damage to nail, initial encounter; I10 Essential (primary) hypertension; Z87.891 Personal history of nicotine dependence; Z88.6 Allergy status to analgesic agent; Z88.8 Allergy status to other drugs, medicaments and biological substances; Y28.8XXA Contact with other sharp object, undetermined intent, initial encounter; Y93.89 Activity, other specified; Y92.89 Other specified places as the place of occurrence of the external cause; Y99.8 Other external cause status
CPT/HCPCS: 12042; 73660; 90471; 90714; 96374; 99284; J0690; J3490

== ENCOUNTER → 2021-11-17 | Outpatient (CLI) | payer MEDICARE ==
[~2021-11-17] MED LIST changes: +CEPH500C PO
== END ==
LOC: LAB 09:44
PROVIDERS: ATTEND Podiatrist
DX: M79.674 Pain in right toe(s) (principal)
CPT/HCPCS: 36415; 82306; 82310